=== PATIENT | male | born 1965 | race Caucasian/White ===

== ENCOUNTER 2018-08-13 05:08 | Inpatient (IN) ==
[2018-08-13] MEDS ORDERED: Chlorhexidine Gluconate 2% 1 Pack (2 Cloths) TOPICAL ONE (05:32)
[2018-08-13] MEDS ORDERED: Metoprolol Tartrate 25 MG Tablet PO ONE (05:32)
[2018-08-13] MEDS ORDERED: Dexamethasone Inj 20 MG/5 ML Vial IV.PUSH PRN (05:36)
[2018-08-13] MEDS ORDERED: Sodium Chlor 0.9% Inj 40 ML, Bupivacaine Liposo PF 1.3% Inj 20 ML P-ARTICULR SCH ×2 (05:45)
[2018-08-13] MEDS ORDERED: Chlorhexidine 4% Topical 120 APPLIC/120 ML Bottle TOPICAL SCH (05:45)
[2018-08-13] MEDS ORDERED: SODIUM CHLOR 0.9% IV.SIG SCH (06:00)
[2018-08-13] MEDS ORDERED: Vancomycin Inj 1,000 MG in Sodium Chlor 0.9% Inj 250 ML IV.SIG SCH (06:00)
[2018-08-13] MEDS ORDERED: ceFAZolin 2 GM Premix Inj 2 GM/50 ML PIGGYBACK IV.SIG SCH (06:00)
[2018-08-13] MEDS ORDERED: Sodium Chlor 0.9% Inj 500 ML IV.SIG SCH (06:00)
[2018-08-13] MEDS ORDERED: TRANEXAMIC ACID IV.SIG SCH (06:00)
[2018-08-13] MEDS ORDERED: Famotidine PF Inj 20 MG/2 ML Vial ONE (06:17)
[2018-08-13] MEDS ORDERED: fentaNYL Citrate Inj 250 MCG/5 ML Ampul ONE (06:17)
[2018-08-13] MEDS ORDERED: fentaNYL Citrate Inj 100 MCG/2 ML Ampul ONE (06:17)
[2018-08-13] MEDS ORDERED: Ketamine Inj 50 MG/5 ML Syringe IV.PUSH ONE (06:37)
[2018-08-13] MEDS ORDERED: Ketorolac Inj 30 MG/ML (IVP) Vial IV.PUSH ONE (06:49)
[2018-08-13] MEDS ORDERED: Neostigmine Inj 5 MG/5 ML Syringe IV.PUSH ONE (06:49)
[2018-08-13] MEDS ORDERED: Lidocaine PF 1% Inj 5 ML Syringe OTHER ONE (06:49)
[2018-08-13] MEDS ORDERED: Glycopyrrolate Inj 1 MG/5 ML Syringe IV.PUSH ONE (06:49)
[2018-08-13] MEDS ORDERED: Post-op Orders (for Pharmacy) OTHER STA (07:00)
[2018-08-13] MEDS ORDERED: Zolpidem Tartrate 5 MG Tablet PO PRN (07:00)
[2018-08-13] MEDS ORDERED: HYDROmorphone PF Inj 2 MG/ML Vial IV.PUSH PRN (07:00)
[2018-08-13] MEDS ORDERED: Tranexamic Acid Inj 3,000 MG in Sodium Chlor 0.9% Inj 100 ML P-ARTICULR SCH (08:41)
--- NOTE | 2018-08-13 09:01 | XR ---
EXAM DATE: 08/13/2018 12:00 AM EDT AGE/SEX: 52 years / Male INDICATIONS: Left total hip replacement. CLINICAL DATA: This is the patient's initial encounter. Patient reports that signs and symptoms have been present for 1 day and indicates a pain score of Nonresponsive. MEDICAL/SURGICAL HISTORY: Non-responsive. Non-responsive. COMPARISON: No prior exams available for comparison. FINDINGS: Status post placement of a left hip prosthesis. There is good position and alignment of the prosthesi s. The bony structures are grossly intact. CONCLUSION: Good position and alignment of the prosthesis. Electronically signed by: Marbin Arauz MD 08/13/2018 9:00 AM EDT
[2018-08-13] MEDS ORDERED: *morphine SULFATE 10 MG/ML PERIprocedure ONLY ONE ×2 (09:09→09:23)
--- NOTE | 2018-08-13 09:14 | MP ---
cc: Kurtis Cesar MD DATE OF OPERATION: 08/13/2018 PREOPERATIVE DIAGNOSIS: Left hip osteoarthritis. POSTOPERATIVE DIAGNOSIS: Left hip osteoarthritis. PROCEDURE PERFORMED: Left total hip arthroplasty. SURGEON: Kurtis Cesar MD. SOCIAL DIRECTOR: ANGEL Cobb. ANESTHESIA: General. ESTIMATED BLOOD LOSS: 200 mL. COMPLICATIONS: None. IMPLANTS USED: DePuy Corail size 13 press-fit high offset femoral stem, size 56 solid [place] Gription cup, size 56 x 36 mm neutral highly cross-linked polyethylene liner, size 36 mm ceramic head +12 neck. JUSTIFICATION: The patient is a 52-year-old male with history of severe osteoarthritis involving the left hip joint. He has severe disabling pain with standing, walking, ambulation, weight bearing, and severe pain at rest. It does interfere with activities of daily living. He has failed greater than 3 months of nonoperative conservative treatment to include medication therapy, injections, ambulatory assistive aids, home exercise program, activity modification, weight loss attempts. X-rays of the left hip revealed severe osteoarthritis with [id number] joint space narrowing, subchondral sclerosis, subchondral cyst, osteophyte formation with subluxation. The patient was counseled as to the risks, benefits, and alternatives to a total hip arthroplasty. The risks were discussed including, but not limited to anesthesia, bleeding, infection, damage to nerves and blood vessels, pain, stiffness, fracture dislocations, failure of components, blood clots, leg length discrepancies, pulmonary embolism, and even . The patient's pain is severe. He favored the benefits over the risks and did wish to proceed with surgery. PROCEDURE IN DETAIL: Written consent was obtained. The patient was identified by name, taken to the operating room and placed supine on the operating room. General anesthesia was administered to the patient, as well as 2 grams of IV Ancef and 1 gram IV vancomycin. The left and right feet were placed in well-padded traction boots. The left hip and left lower extremity were prepped and draped using isopropyl alcohol, Hibiclens solution, and ChloraPrep solution. After a timeout was performed, a longitudinal incision was made over the anterior aspect of the left hip. The fascial layer was incised. Dissection was carried over the tensor fascia sohan beneath the rectus femoris to allow exposure of the anterior hip capsule. Capsulotomy incision was performed. An oscillating saw was used to perform the femoral neck cut. The osteoarthritic femoral head and neck component was removed. A 10 blade scalpel was used to excise the labrum. Sequential reaming begun with a size 47 and was carried through to a size 56. Subsequently, a solid [place] 56 mm cup was implanted in approximately 45 degrees of abduction and 10 degrees anteversion. There was good purchase and fixation with insertion of the cup. A screw hole eliminator was placed, followed by the neutral liner. The liner was impacted in place and tested for stability. Attention was turned to the femur, where the leg was externally rotated, extended, and abducted. The capsule was released off the undersurface of the greater trochanter to allow for elevation and lateralization of the femur. Box cutting osteotome was used to gain entrance into the intramedullary canal of the femur, followed by canal finder and sequential broaching up to size 13. A calcar planer was used to plane the calcar. Trial head and neck combinations were divided and the final component was implanted . with the current components, the leg could be externally rotated to 70 degrees and extended all the way down to the ground without evidence of anterior instability or impingement. Fluoroscopic imaging showed appropriate implantation of components. Surgical wound was thoroughly irrigated with sterile saline pulse with antibiotic-impregnated solution. The fascia was closed with #1 Vicryl suture, subcutaneous layer with 2-0 Vicryl suture, and skin was closed with Dermabond. Sterile dressing applied. The patient tolerated the procedure well with no intraoperative complications noted. Tank Blevins PA-C, was present throughout the procedure to include patient positioning and the procedure itself. The medical necessity for the physician dietitian assistant was indicated in this case due to the complexity of the procedure. He assisted with appropriate manipulation of the leg and also retraction of muscle, tendon, bone, and neurovascular structures. He assisted with preparation of bone and also implantation of the prosthetic replacement. MD GERARDO Ramirez/kev , 08:50 AM , 08:57 AM
--- NOTE | 2018-08-13 10:12 | XR ---
EXAM DATE: 08/13/2018 6:55 AM EDT AGE/SEX: 52 years / Male INDICATIONS: Post op left hip replacement. CLINICAL DATA: This is the patient's initial encounter. Patient reports that signs and symptoms have been present for 1 day and indicates a pain score of Nonresponsive. MEDICAL/SURGICAL HISTORY: None. None. COMPARISON: TLI, XR HIP W/ AP PELVIS, BILATERAL, 08/21/2017. . FINDINGS: Left arthroplasty in place. Arthroplasty components are in good position and normal alignment. No acu te bony fractures. Remainder of the exam is unchanged. CONCLUSION: 1. Left hip arthroplasty in anatomic alignment without acute fracture. Electronically signed by: Hipolito Du MD 08/13/2018 10:11 AM EDT
[2018-08-13] MEDS: ceFAZolin 2 GM Premix Inj 2 GM/100 ML BAG IV.SIG SCH ×3 (11:58→23:09)
[2018-08-13] MEDS: Senna/Docusate Sodium 8.6/50 MG Tablet PO SCH ×2 (12:53→20:10)
[2018-08-13] MEDS: Multivitamin/Minerals Therapeutic Tablet PO SCH ×2 (12:53→20:10)
--- NOTE | 2018-08-13 15:23 | P.CON ---
History of Present Illness Requesting Physician: Kurtis Cesar Reason for Consult: postop mgt Primary Care Provider: Ash Morrison III, MD Chief Complaint: Left hip pain History of Present Illness: This is a 52-year-old male who complains of left hip pain secondary to osteoarthritis. Underwent elective hip arthroplasty by Dr. Cesar who requested consultation to evaluate and manage patient postoperatively. Anesthesia records reviewed he was hemodynamically stable. Received 1300 mL crystalloid and EBL of 200 mL. Patient only medical condition is GERD which he is controlled on Prilosec. Outside records reviewed underwent unremarkable CBC, BMP and coags. CHEST X-RAY findings were abnormal with 3 nodules in the left lung recommended to undergo CT scan with contrast. He is an ex-smoker quit 13 years ago. Patient has been cleared for surgery by his PCP Dr. Howard. All other systems reviewed negative Review of Systems All other systems reviewed negative except as stated in HPI PMFSH - History History Provided By: Patient - Medical History Medical History: Medical History (Last Reviewed 08/13/18 @ 15:30 by Virgil Padilla MD) Arthritis Full dentures GERD (gastroesophageal reflux disease) Hip pain, left History of renal stone - Surgical History Surgical History: Surgical History (Last Reviewed 08/13/18 @ 15:30 by Virgil Padilla MD) History of appendectomy Hx of colonoscopy - Family History Family History: Family History (Last Updated 08/13/18 @ 15:30 by Virgil Padilla MD) Other No pertinent family history - Social History I have reviewed the patient's Social History: Yes - Tobacco History Second Hand Smoke Exposure: No Tobacco Use In Past 30 Days: No Smoking Status: Former smoker Tobacco Type: Cigarettes - Alcohol History How Often Do You Have a Drink Containing Alcohol: Never - Substance Use History Substance History: No History of Abuse - Travel History Recent Travel in the [place] Within the Last 8 Weeks: No Recent Travel Out of the Country Within the Last 8 Weeks: No - Immunization History Tetanus Immunization: >5 Years Hx Influenza Vaccine This Season: No Medications and Allergies Active Medications: Active Medications Hydrocodone Bitart/Acetaminophen ([place]urel 7.5/325) 1 tab PO Q4H PRN PRN Reason: PAIN LESS THAN 5 ON SCALE Hydrocodone Bitart/Acetaminophen (Laurel 7.5/325) 2 tab PO Q6H PRN PRN Reason: PAIN SCALE 5 TO 10 Al Hydroxide/Mg Hydroxide (Milk Of Magnpaul Liq) 30 ml PO BID PRN PRN Reason: Mild Constipation Aspirin (Aspirin Chew) [address] [facility] Last Admin: 08/13/18 12:53 Dose: Not Given Chlorhexidine Gluconate (Hibiclens 4% Topical) [address] [facility] Stop: 08/17/18 05:44 Clonidine HCl (Catapres) 0.1 mg PO Q6H PRN PRN Reason: SEE LABEL COMMENTS Dexamethasone Sodium Phosphate (Decadron Inj) 10 mg IV.PUSH ROOFER APPLICATOR PRN PRN Reason: PRE-OP IN OR HOLDING Stop: 08/13/18 22:00 Last Admin: 08/13/18 05:50 Dose: 10 mg Diphenhydramine HCl (Benadryl) 25 mg PO Q6H PRN PRN Reason: ITCHING Enalaprilat (Vasotec Inj) 1.25 mg IV.PUSH Q6H PRN PRN Reason: SEE LABEL COMMENTS Hydromorphone HCl (Dilaudid Pf Inj) 1 mg IV.PUSH Q3H PRN PRN Reason: BREAKTHROUGH PAIN Sodium Chloride (Ns Inj) 500 mls @ 30 mls/hr IV.SIG .Q10H [facility] Last Admin: 08/13/18 06:06 Dose: Not Given Lactated Ringer's (Lr 1000 Ml Inj) 1,000 mls @ 30 mls/hr IV.SIG .Q24H [facility] Stop: 08/14/18 05:44 Last Infusion: 08/13/18 13:14 Dose: Infused Cefazolin Sodium/Dextrose (Ancef 2 Gm Premix Inj) 2 gm in 50 mls @ 100 mls/hr IV.SIG ROOFER APPLICATOR [facility] Stop: 08/17/18 05:59 Last Infusion: 08/13/18 07:30 Dose: Infused Vancomycin HCl 1,000 mg/ (Sodium Chloride) 250 mls @ 250 mls/hr IV.SIG ROOFER APPLICATOR [facility] Stop: 08/16/18 05:41 Last Infusion: 08/13/18 07:30 Dose: Infused Cefazolin/Sodium Chloride (Ancef 2 Gm Premix Inj) 2 gm in 100 mls @ 200 mls/hr IV.SIG Q6H [facility] Stop: 08/14/18 00:29 Last Infusion: 08/13/18 12:28 Dose: Infused Lactated Ringer's (Lr 1000 Ml Inj) 1,000 mls @ 80 mls/hr IV.CONT .[id number] [facility] Last Admin: 08/13/18 09:28 Dose: 80 mls/hr Lactulose (Lactulose Liq) 30 ml PO DAILY PRN PRN Reason: SEVERE CONSITIPATION Miscellaneous Information ([facility] Nursing Information) 0 each OTHER UNSCH PRN PRN Reason: SEE LABEL COMMENTS Stop: 08/14/18 09:03 Multivitamins/Minerals (Theragran-M) [address] [facility] Stop: 10/12/18 08:59 Last Admin: 08/13/18 12:53 Dose: Not Given Ondansetron HCl (Zofran Inj) 4 mg IV.PUSH Q6H PRN PRN Reason: NAUSEA OR VOMITING Pantoprazole Sodium (Protonix) [address] [facility] Last Admin: 08/13/18 12:53 Dose: Not Given Povidone Iodine (Betadine 7.5% Scrub) [address] [facility] Stop: 08/17/18 05:59 Senna/Docusate Sodium (Jojo-Colace) [address] [facility] Last Admin: 08/13/18 12:53 Dose: Not Given Sennosides (Senokot) 17.2 mg PO BID PRN PRN Reason: Moderate Constipation Sodium Chloride (Ns Flush) [address] [facility] Last Admin: 08/13/18 12:53 Dose: Not Given Sodium Chloride (Ns Flush) 2 ml IV.FLUSH PRN PRN PRN Reason: FLUSH AFTER USING IV ACCESS Zolpidem Tartrate (Ambien) 5 mg PO HS PRN PRN Reason: INSOMNIA Allergies Allergy/AdvReac Type Severity Reaction Status Date / Time No Known Allergies Allergy Verified 08/13/18 05:51 Home Medications Medication Instructions Recorded Confirmed Type ibuprofen 200 mg PO QID PRN 07/26/18 08/13/18 History meloxicam [Mobic] 15 mg PO DAILY 07/26/18 08/13/18 History omeprazole 40 mg PO DAILY 07/26/18 08/13/18 History Physical Exam Vital signs: Vital Signs 08/13/18 05:53 08/13/18 09:05 08/13/18 09:15 Temperature 98.1 F 98.7 F Pulse Rate 73 76 73 Respiratory Rate 16 12 17 Blood Pressure 153/94 H 181/95 H 167/81 H Pulse Oximetry 96 99 97 08/13/18 09:30 08/13/18 10:02 08/13/18 12:00 Temperature 97.4 F L 97.2 F L Pulse Rate 63 63 54 L Respiratory Rate 12 16 16 Blood Pressure 177/83 H 172/81 H 170/76 H Pulse Oximetry 98 96 96 Intake & Output 08/12/18 08/13/18 08/13/18 18:59 06:59 18:59 Intake Total 2317 / 2317 Output Total 200 / 200 Balance 2116 / 2116 Weight 113.5 kg 115.5 kg Intake: IV 1517 / 1517 LR 1000 mL Inj 1,000 ML @ 30 1000 / 1000 mls/hr IV.SIG .Q24H [facility] Rx#: [id number] Cyklokapron Inj 1,700 MG In NS 117 / 117 Inj 100 ML @ 200 mls/hr IV.SIG ONCE [facility] Rx#:[id number] Vancomycin Inj 1,000 MG In NS 250 / 250 Inj 250 ML @ 250 mls/hr IV.SIG ROOFER APPLICATOR [facility] Rx#:[id number] Ancef 2 GM Premix Inj 2 gm In 100 / 100 100 ml @ 200 mls/hr IV.SIG Q6H [facility] Rx#:[id number] Ancef 2 GM Premix Inj 2 gm In 50 / 50 50 ml @ 100 mls/hr IV.SIG ROOFER APPLICATOR [facility] Rx#:[id number] Anesthesia Amount 800 / 800 Output: Estimated Blood Loss 200 / 200 Other: Weight On Admission 113.5 kg Narrative: GENERAL: Well-developed in no distress SKIN: Warm and dry. HEAD: Atraumatic. Normocephalic. EYES: Pupils equal and round. No scleral icterus. No injection or drainage. ENT: No nasal bleeding or discharge. Mucous membranes pink and moist. NECK: Trachea midline. No JVD. CARDIOVASCULAR: Regular rate and rhythm. RESPIRATORY: No accessory muscle use. Clear to auscultation. Breath sounds equal bilaterally. GASTROINTESTINAL: Abdomen soft, non-tender, nondistended. MUSCULOSKELETAL: Extremities without clubbing, cyanosis, or edema. No obvious deformities. NEUROLOGICAL: Awake and alert. No obvious cranial nerve deficits. Motor grossly within normal limits. Five out of 5 muscle strength in the arms and legs. Normal speech. PSYCHIATRIC: Appropriate mood and affect; insight and judgment normal. Assessment and Plan - Plan This is a 52-year-old male who complains of left hip pain secondary to osteoarthritis. Underwent elective hip arthroplasty by Dr. Cesar who requested consultation to evaluate and manage patient postoperatively. Continue postoperative care with PT, wound care, DVT prophylaxis with aspirin and pain management with Lortab and IV Dilaudid. Counseled regarding narcotics. Incentive spirometry. GERD which he is controlled on Prilosec, will continue. 3 nodules in the left lung recommended to undergo CT scan with contrast which can be done outpatient. He is an ex-smoker quit 13 years ago outpatient follow- up with PCP Dr. Howard. BP elevation likely secondary to pain. Will monitor with as needed Vasotec and clonidine. Discharge Planning: Per orthopedic surgery. Up in the morning if he is clinically stable pending repeat labs
[2018-08-13] MEDS ORDERED: Influenza (Quadrivalent) Vaccine 0.5 ML Syringe IM ONE (17:00)
[2018-08-14 06:56] LABS: Hematocrit 34.3 % (39.0-51.0); Hemoglobin 11.6 gm/dL (13.0-17.0)
[2018-08-14 07:22] LABS: Calcium 8.1 mg/dL (8.5-10.1); Carbon Dioxide 26.7 meq/L (21.0-32.0); Potassium 3.9 meq/L (3.5-5.1)
--- NOTE | 2018-08-14 08:05 | P.PNOP ---
Subjective Interval history: pain controlled. Physical Exam Vital signs: Vital Signs 08/13/18 09:05 08/13/18 09:15 08/13/18 09:30 Temperature 98.7 F Pulse Rate 76 73 63 Respiratory Rate 12 17 12 Blood Pressure 181/95 H 167/81 H 177/83 H Pulse Oximetry 99 97 98 08/13/18 10:02 08/13/18 12:00 08/13/18 16:00 Temperature 97.4 F L 97.2 F L 97.7 F Pulse Rate 63 54 L 104 H Respiratory Rate 16 16 16 Blood Pressure 172/81 H 170/76 H 167/96 H Pulse Oximetry 96 96 97 08/13/18 20:00 08/13/18 22:26 08/14/18 00:00 Temperature 97.8 F 97.9 F Pulse Rate 80 92 H Respiratory Rate 18 18 18 Blood Pressure 142/66 H 140/78 Pulse Oximetry 98 98 08/14/18 04:00 Temperature 98.1 F Pulse Rate 73 Respiratory Rate 18 Blood Pressure 132/68 Pulse Oximetry 98 Intake & Output 08/13/18 08/14/18 08/14/18 18:59 06:59 18:59 Intake Total 2317 / 2317 1200 / 1200 Output Total 200 / 200 Balance 2117 / 2117 1200 / 1200 Weight 115.5 kg 114.6 kg Intake: IV 1517 / 1517 1200 / 1200 LR 1000 mL Inj 1,000 ML @ 80 1000 / 1000 mls/hr IV.CONT .[id number] [facility] Rx# :[id number] LR 1000 mL Inj 1,000 ML @ 30 1000 / 1000 mls/hr IV.SIG .Q24H [facility] Rx#: [id number] Cyklokapron Inj 1,700 MG In NS 117 / 117 Inj 100 ML @ 200 mls/hr IV.SIG ONCE [facility] Rx#:[id number] Vancomycin Inj 1,000 MG In NS 250 / 250 Inj 250 ML @ 250 mls/hr IV.SIG PSYCHIATRIST [facility] Rx#:[id number] Ancef 2 GM Premix Inj 2 gm In 100 / 100 200 / 200 100 ml @ 200 mls/hr IV.SIG Q6H [facility] Rx#:[id number] Ancef 2 GM Premix Inj 2 gm In 50 / 50 50 ml @ 100 mls/hr IV.SIG PSYCHIATRIST [facility] Rx#:[id number] Anesthesia Amount 800 / 800 Output: Estimated Blood Loss 200 / 200 Other: # Voids 2 4 Date of Last Bowel Movement 08/12/18 08/12/18 Narrative: in bed, nad dressing c/d/i neg homalucy nvi Results - Labs CBC & Chem 7: 08/14/18 05:48 08/14/18 05:48 Laboratory Results - last 24 hr 08/14/18 08/14/18 05:48 05:48 Hgb 11.6 L Hct 34.3 L Sodium 139 Potassium 3.9 Chloride 103 Carbon Dioxide 26.7 Anion Gap 9 BUN 18 Creatinine 1.15 Estimated GFR 67 L Random Glucose 122 H Calcium 8.1 L - Imaging Impressions Hip X-Ray 08/13/18 00:00 CONCLUSION: Good position and alignment of the prosthesis. Hip X-Ray 08/13/18 06:55 CONCLUSION: 1. Left hip arthroplasty in anatomic alignment without acute fracture. Assessment and Plan - Ortho Post Op Day # 1 - Assessment and Plan s/p L ELSIE anterior approach wbat ok to maintain dressing unless saturated asa 81 d/c planning home with hhc and pt - cleared today if does well in PT f/up dr. arriola 2 weeks.
[2018-08-14 08:25] VITALS: BP 136/69; PULSE 67; RESP 16; TEMP 98.3; O2SAT 94
[2018-08-14] MEDS: Multivitamin/Minerals Therapeutic Tablet PO SCH (08:28)
[2018-08-14] MEDS: Senna/Docusate Sodium 8.6/50 MG Tablet PO SCH (08:28)
--- NOTE | 2018-08-14 08:45 | P.PN ---
Subjective Interval history: This is a pleasant 52 y/o male who complaint of Left hip pain secondary to OA, status post elective Left Hip arthroplasty by Doctor Arsenio, ameena. he has GERD, CHEST X- RAY findings were abnormal with 3 nodules in the left lung recommended to undergo CT scan with contrast. He is an ex-smoker quit 13 years ago. 08/14: Seen in his bedroom, discussed with nurse Miss Ayon patient already recommended for discharge by his Orthopedic veterinary surgery technician okay to discharge from medicine standpoint, no nausea, vomit or diarrhea. Physical Exam Vital signs: Vital Signs 08/13/18 09:05 08/13/18 09:15 08/13/18 09:30 Temperature 98.7 F Pulse Rate 76 73 63 Respiratory Rate 12 17 12 Blood Pressure 181/95 H 167/81 H 177/83 H Pulse Oximetry 99 97 98 08/13/18 10:02 08/13/18 12:00 08/13/18 16:00 Temperature 97.4 F L 97.2 F L 97.7 F Pulse Rate 63 54 L 104 H Respiratory Rate 16 16 16 Blood Pressure 172/81 H 170/76 H 167/96 H Pulse Oximetry 96 96 97 08/13/18 20:00 08/13/18 22:26 08/14/18 00:00 Temperature 97.8 F 97.9 F Pulse Rate 80 92 H Respiratory Rate 18 18 18 Blood Pressure 142/66 H 140/78 Pulse Oximetry 98 98 08/14/18 04:00 08/14/18 08:00 Temperature 98.1 F 98.3 F Pulse Rate 73 67 Respiratory Rate 18 16 Blood Pressure 132/68 136/69 Pulse Oximetry 98 94 L Intake & Output 08/13/18 08/14/18 08/14/18 18:59 06:59 18:59 Intake Total 2317 / 2317 1200 / 1200 Output Total 200 / 200 Balance 2117 / 2117 1200 / 1200 Weight 115.5 kg 114.6 kg Intake: IV 1517 / 1517 1200 / 1200 LR 1000 mL Inj 1,000 ML @ 80 1000 / 1000 mls/hr IV.CONT .[id number] [facility] Rx# :[id number] LR 1000 mL Inj 1,000 ML @ 30 1000 / 1000 mls/hr IV.SIG .Q24H [facility] Rx#: [id number] Cyklokapron Inj 1,700 MG In NS 117 / 117 Inj 100 ML @ 200 mls/hr IV.SIG ONCE [facility] Rx#:[id number] Vancomycin Inj 1,000 MG In NS 250 / 250 Inj 250 ML @ 250 mls/hr IV.SIG SURGICAL CODER [facility] Rx#:[id number] Ancef 2 GM Premix Inj 2 gm In 100 / 100 200 / 200 100 ml @ 200 mls/hr IV.SIG Q6H [facility] Rx#:[id number] Ancef 2 GM Premix Inj 2 gm In 50 / 50 50 ml @ 100 mls/hr IV.SIG SURGICAL CODER [facility] Rx#:[id number] Anesthesia Amount 800 / 800 Output: Estimated Blood Loss 200 / 200 Other: # Voids 2 4 Date of Last Bowel Movement 08/12/18 08/12/18 Narrative: GENERAL: Obesity, no acute distress. SKIN: Warm and dry. HEAD: Atraumatic. Normocephalic. EYES: Pupils equal and round. No scleral icterus. No injection or drainage. NECK: Trachea midline. No JVD. CARDIOVASCULAR: Regular rate and rhythm. RESPIRATORY: No accessory muscle use. Clear to auscultation. Breath sounds equal bilaterally. GASTROINTESTINAL: Abdomen soft, non-tender, nondistended. MUSCULOSKELETAL: Extremities without clubbing, left hip area dressed, clean surgical wound. NEUROLOGICAL: Awake and alert. No obvious cranial nerve deficits. PSYCHIATRIC: Appropriate mood and affect; insight and judgment normal. Results - Labs CBC & Chem 7: 08/14/18 05:48 08/14/18 05:48 Laboratory Results - last 24 hr 08/14/18 08/14/18 05:48 05:48 Hgb 11.6 L Hct 34.3 L Sodium 139 Potassium 3.9 Chloride 103 Carbon Dioxide 26.7 Anion Gap 9 BUN 18 Creatinine 1.15 Estimated GFR 67 L Random Glucose 122 H Calcium 8.1 L - Imaging Hip X-Ray 08/13/18 00:00 CONCLUSION: Good position and alignment of the prosthesis. Hip X-Ray 08/13/18 06:55 CONCLUSION: 1. Left hip arthroplasty in anatomic alignment without acute fracture. Assessment and Plan - Plan This is a 52-year-old male who complains of left hip pain secondary to osteoarthritis. Underwent elective hip arthroplasty by Dr. Cesar who requested consultation to evaluate and manage patient postoperatively. Continue postoperative care with PT, wound care, DVT prophylaxis with aspirin and pain management with Lortab and IV Dilaudid. Counseled regarding narcotics. Incentive spirometry. Okay to discharge from his Orthopedic veterinary surgery technician, Hospitalist clear for discharge. GERD which he is controlled on Prilosec, will continue. 3 nodules in the left lung recommended to undergo CT scan with contrast which can be done outpatient. He is an ex-smoker quit 13 years ago outpatient follow- up with PCP Dr. Howard. Obesity strongly recommended diet and exercise as outpatient. Code Status: Full Code. Discussed Condition With: patient and nurse miss Ayon Discharge Planning: As per Attending physician.
--- NOTE | 2018-08-14 10:09 | P.DCO ---
- Physical Therapy Physical Therapy: Gait training, Transfer training, bed to chair Hip: Total hip, Protocol: Left Left Lower Extremity Weight Bearing: Weight bearing as tolerated - Nursing RN: 3 days/week x 2 weeks Nursing: Dressing changes Dressing changes: Do not change dressing, Daily dressing change - Certification Need for Home Health services: I have seen patient Andrew Lala on 08/14/18. My clinical findings support the need for the requested home health care services because: Need for Home Health Services: Limited mobility due to disease progression, High risk of falls Homebound Certification: I certify that my clinical findings support that this patient is homebound because: Homebound Certification: Post-op weakness, Unsafe to leave home unassisted
--- NOTE | 2018-08-15 11:29 | MD ---
cc: Kurtis Cesar MD DATE OF DISCHARGE: 08/14/2018 ADMITTING DIAGNOSIS: Severe degenerative osteoarthritis, left hip. DISCHARGE DIAGNOSIS: Severe degenerative osteoarthritis, left hip. HISTORY OF PRESENT ILLNESS: Mr. Lala is a 52-year-old male who presented to the orthopedic clinic for evaluation by Dr. Kurtis Cesar regarding progressive left hip pain. The patient states the pain has been present for several years and is currently inhibiting his activities of daily living. It is a severe aching sensation aggravated by weightbearing activities. He has no alleviating factors, although in the past he has tried medications, assistive devices, physical therapy, home exercise program, and even corticosteroid injection in the left hip joint without relief of symptoms. He does have x-ray evidence of severe degenerative changes of the left hip. While in the office, the patient was counseled on his diagnosis and treatment options. Risks, benefits, and indications were all discussed. The patient did elect to proceed with surgical intervention to include a left total hip arthroplasty. PROCEDURE: On 08/13/2018, left total hip arthroplasty, anterior approach. POSTOP: After surgery, the patient was admitted to [facility] where he received appropriate medical management, pain control, DVT prophylaxis, as well as physical therapy. DISCHARGE: Once being discharged from the hospital, patient is cleared to go home. He will receive home health care and home physical therapy. He is in stable condition. He may weight bear as tolerated. He has been instructed on wound care management. He has been provided prescriptions for pain control as well as DVT prophylaxis medication. He has also been provided a followup appointment approximately 2 weeks from his date of surgery. The patient asked appropriate questions which have been answered. The patient had been discharged. Dictated by ANGEL Nguyen Kurtis Cesar MD [email or web address] , 10:08 PM , 10:12 PM
== END 2018-08-14 14:18 | disposition home health service (06) ==
LOC: HSDI 05:08 → N06 10:23
PROVIDERS: ADMIT Orthopaedic Surgery Sports Medicine; ATTEND Orthopaedic Surgery Sports Medicine